=== PATIENT | female | born 1970 | race Caucasian/White ===

== ENCOUNTER 2019-10-19 04:40 | Outpatient (CLI) | payer SELFPAY ==
[2019-10-19 09:00] LABS: CHOL/HDL RATIO 4.28 (0.00-4.99)
[2019-10-19 09:03] LABS: HEMOGLOBIN A1C 5.5 % (4.5-6.2)
== END 2019-10-19 23:59 | disposition home or self-care (01) ==
LOC: HW HEART 04:40
DX: Z13.6 Encounter for screening for cardiovascular disorders (principal)
CPT/HCPCS: 36415; G0438

== ENCOUNTER → 2020-09-16 | Outpatient (CLI) | payer BC | END | disposition home or self-care (01) | LOC: RAD 08:33 | PROVIDERS: ATTEND Physician Assistant Surgical | DX: K80.20 Calculus of gallbladder without cholecystitis without obstruction (principal); R93.5 Abnormal findings on diagnostic imaging of other abdominal regions, including retroperitoneum; R10.11 Right upper quadrant pain | CPT/HCPCS: 76700 ==

== ENCOUNTER 2021-01-01 11:54 | Inpatient (IN) | payer BC ==
[~2021-01-01] VITALS: Ht 167.6 cm; Wt 91.2 kg
[2021-01-01 13:13] LABS: ALANINE AMINOTRANSFERASE 105 U/L (12-78); ALBUMIN 3.4 G/DL (3.4-5.0); ALBUMIN/GLOBULIN RATIO 0.8 (1.1-1.5); ALKALINE PHOSPHATASE 206 IU/L (46-116); ANION GAP 12 (8-16); ASPARTATE AMINO TRANSFERASE 77 U/L (10-37); BILIRUBIN,TOTAL 1.2 MG/DL (0.1-1.0); BLOOD UREA NITROGEN 8 MG/DL (7-18); BUN/CREATININE RATIO 12.5 (6.6-38.0); CALCIUM 9.2 MG/DL (8.5-10.1); CHLORIDE 104 MMOL/L (99-107); CREATININE 0.64 MG/DL (0.40-0.90); GLUCOSE 98 MG/DL (70-104); LIPASE < 50 U/L (73-393); POTASSIUM 3.7 MMOL/L (3.5-5.1); SODIUM 141 MMOL/L (135-145); TOTAL CARBON DIOXIDE 24.9 MMOL/L (24-32); TOTAL PROTEIN 7.8 G/DL (6.4-8.2); eGFR > 90 ML/MIN
[2021-01-01 13:16] LABS: BASOPHILS % (AUTO) 0.4 % (0-1); EOSINOPHILS # (AUTO) 0.2 X10'3 (0-0.9); EOSINOPHILS % (AUTO) 1.4 % (0-6); HEMATOCRIT 38.5 % (35.0-45.0); HEMOGLOBIN 13.2 g/dl (12.0-16.0); LYMPHOCYTES % (AUTO) 17.4 % (21-51); MEAN CORPUSCULAR HEMOGLOBIN 29.4 PG (27.0-31.0); MEAN CORPUSCULAR HGB CONC 34.3 g/dL (33.0-36.5); MEAN CORPUSCULAR VOLUME 85.5 FL (78-98); MEAN PLATELET VOLUME 7.5 FL (7.4-10.4); MONOCYTES # (AUTO) 0.9 X10'3 (0-0.9); MONOCYTES % (AUTO) 7.4 % (2-12); NEUTROPHILS # (AUTO) 8.5 X10'3 (1.8-7.7); NEUTROPHILS % (AUTO) 73.4 % (42-75); PLATELET COUNT 196 X10'3 (140-440); RED CELL DISTRIBUTION WIDTH 12.2 % (11.5-14.5); WHITE BLOOD COUNT 11.6 X10'3 (4.5-11.0)
[2021-01-01 14:23] LABS: CLARITY,URINE SLIGHTLY CLOUDY (Clear); COLOR,URINE YELLOW (Yellow); GLUCOSE, URINE NEGATIVE (Neg); KETONES,URINE 15 mg/dl (Neg); LEUKOCYTE ESTERASE ,URINE NEGATIVE (Neg); NITRITES, URINE NEGATIVE (Neg); OCCULT BLOOD,URINE TRACE-INTACT (Neg); PH,URINE 6.5 (4.8-8.0); PROTEIN,URINE NEGATIVE (Neg); UA COLLECTION TYPE VOIDED
[2021-01-01 14:27] LABS: SQUAMOUS EPITHELIAL CELL,UR MODERATE /LPF (FEW)
[2021-01-01 14:28] LABS: BACTERIA,URINE 1+ /HPF (Neg); RBC,URINE 0-2 /HPF (0-2); WBC,URINE 0-4 /HPF (0-4)
[2021-01-01 14:30] LABS: URINE HCG NEGATIVE (NEG)
--- NOTE | 2021-01-01 15:31 | NUR ---
US AT BEDSIDE
[2021-01-01] MEDS ORDERED: ondansetron/PF 4mg/2ml inj IV ONE (16:05)
[2021-01-01] MEDS ORDERED: piperacillin/tazo 3.375gm/50ml 50 ML IV ONE (16:05)
[2021-01-01] MEDS ORDERED: normal saline 1000ML IV soln IVB ONE (16:05)
[2021-01-01] MEDS ORDERED: morphine 2 MG/ML inj. syringe IV PRN ×2 (16:05→16:15)
[2021-01-01] MEDS ORDERED: METO50TA16 PO (16:08)
[2021-01-01] MEDS ORDERED: HYDR12.55 PO (16:08)
[2021-01-01] MEDS: levoFLOXACIN-Levaquin 750MG/D5 150 ML IV SCH (16:15)
[2021-01-01] MEDS ORDERED: ondansetron/PF 4mg/2ml inj IV PRN (16:15)
[2021-01-01] MEDS: normal saline 1000ml 1,000 ML IV SCH (16:15)
[2021-01-01] MEDS ORDERED: diphenhydrAMINE 25mg capsule PO PRN (16:15)
[2021-01-01] MEDS ORDERED: acetaminophen 325mg tablet PO PRN (16:15)
[2021-01-01] MEDS ORDERED: acetaminophen 650mg rectal suppository RC PRN (16:15)
[2021-01-01] MEDS ORDERED: magnesium 4gm in 100ml NS 100 ML IV PRN (16:15)
[2021-01-01] MEDS ORDERED: potassium Cl 40MEQ/1/2NS 520ml 520 ML IV PRN ×2 (16:15)
[2021-01-01] MEDS ORDERED: HYDROcodone/acetaminophen 5mg/325mg tablet PO PRN (16:15)
[2021-01-01] MEDS ORDERED: bisacodyl 10mg suppository rectal RC PRN (16:15)
[2021-01-01] MEDS ORDERED: magnesium Cl slow-release 64mg tablet PO PRN (16:15)
[2021-01-01] MEDS ORDERED: potassium Cl 20 mEq SR tablet PO PRN ×2 (16:15)
[2021-01-01] MEDS ORDERED: magnesium hydroxide 30ml (MOM) UD suspension PO PRN (16:15)
[2021-01-01] MEDS ORDERED: magnesium 2GM in 50ml NS 50 ML IV PRN (16:15)
[2021-01-01] MEDS ORDERED: mag hydrox/Alum hydrox/simeth 30ml oral suspension PO PRN (16:15)
[2021-01-01] MEDS: morphine 2 MG/ML inj. syringe IV PRN (18:21)
[2021-01-01] MEDS: K and/or MAG REPLACEMENT MC SCH (19:07)
[2021-01-01] MEDS: docusate sod 100mg capsule PO SCH (19:47)
[2021-01-01] MEDS: heparin, porcine 5000 units/ml vial SQ SCH (20:34)
--- NOTE | 2021-01-01 22:05 | NUR ---
Received report from Yovany YUN in the ER. Pt arrived on the floor via gurney and was able to ambulate to her bed. Her personal belongings were placed at bedside. Pt was on room air, had NS running at 100 mls/hr and no signs of distress. Will continue to monitor.
[2021-01-01 23:01] VITALS: BP 165/85
[2021-01-01] MEDS: metroNIDAZOLE-Flagyl 500mg/NS 100 ML IV SCH (23:18)
[2021-01-01] MEDS: acetaminophen 325mg tablet PO PRN (23:26)
[2021-01-01] MEDS: metoprolol tartrate 50mg tablet PO SCH (23:29)
[2021-01-02] VITALS (18 sets, daily range): BP systolic 131–166; BP diastolic 75–89
[2021-01-02] MEDS: normal saline 1000ml 1,000 ML IV SCH ×3 (03:38→21:20)
[2021-01-02] MEDS: morphine 2 MG/ML inj. syringe IV PRN (03:41)
--- NOTE | 2021-01-02 06:29 | NUR ---
Problems reprioritized. Patient report given, questions answered & plan of care reviewed with Valentina YUN.
[2021-01-02] MEDS: heparin, porcine 5000 units/ml vial SQ SCH ×2 (07:28→22:56)
[2021-01-02] MEDS: docusate sod 100mg capsule PO SCH ×2 (07:29→22:56)
[2021-01-02] MEDS: metoprolol tartrate 50mg tablet PO SCH ×3 (07:29→22:55)
[2021-01-02] MEDS: K and/or MAG REPLACEMENT MC SCH ×2 (08:00→20:00)
[2021-01-02] MEDS: metroNIDAZOLE-Flagyl 500mg/NS 100 ML IV SCH ×2 (09:25→16:22)
[2021-01-02] MEDS: HYDROcodone/acetaminophen 10/325mg tab PO PRN ×2 (09:31→22:56)
[2021-01-02] MEDS ORDERED: pantoprazole 40 MG vial IV ONE (09:35)
[2021-01-02 10:17] LABS: BASOPHILS % (AUTO) 0.3 % (0-1); EOSINOPHILS # (AUTO) 0.2 X10'3 (0-0.9); EOSINOPHILS % (AUTO) 1.9 % (0-6); HEMATOCRIT 36.2 % (35.0-45.0); HEMOGLOBIN 12.8 g/dl (12.0-16.0); LYMPHOCYTES # (AUTO) 1.6 X10'3 (1.1-4.8); MEAN CORPUSCULAR HEMOGLOBIN 29.6 PG (27.0-31.0); MEAN CORPUSCULAR HGB CONC 35.2 g/dL (33.0-36.5); MEAN CORPUSCULAR VOLUME 84.2 FL (78-98); MEAN PLATELET VOLUME 6.8 FL (7.4-10.4); MONOCYTES # (AUTO) 0.5 X10'3 (0-0.9); NEUTROPHILS # (AUTO) 6.1 X10'3 (1.8-7.7); NEUTROPHILS % (AUTO) 72.8 % (42-75); PLATELET COUNT 216 X10'3 (140-440); RED CELL DISTRIBUTION WIDTH 12.6 % (11.5-14.5); WHITE BLOOD COUNT 8.3 X10'3 (4.5-11.0)
[2021-01-02 10:33] LABS: ALANINE AMINOTRANSFERASE 84 U/L (12-78); ALBUMIN 2.9 G/DL (3.4-5.0); ALBUMIN/GLOBULIN RATIO 0.7 (1.1-1.5); ALKALINE PHOSPHATASE 211 IU/L (46-116); ANION GAP 9 (8-16); ASPARTATE AMINO TRANSFERASE 41 U/L (10-37); BLOOD UREA NITROGEN 7 MG/DL (7-18); BUN/CREATININE RATIO 10.1 (6.6-38.0); CALCIUM 8.3 MG/DL (8.5-10.1); CHLORIDE 106 MMOL/L (99-107); CHOL/HDL RATIO 6.1 (0.00-4.99); CHOLESTEROL 183 MG/DL (0-200); CREATININE 0.69 MG/DL (0.40-0.90); GLUCOSE 99 MG/DL (70-104); HDL CHOLESTEROL 30 MG/DL (35-60); LDL CHOLESTEROL 124 MG/DL (50-100); MAGNESIUM 1.9 MG/DL (1.5-2.4); PHOSPHORUS 3.5 MG/DL (2.3-4.5); SODIUM 141 MMOL/L (135-145); TOTAL CARBON DIOXIDE 26.4 MMOL/L (24-32); TRIGLYCERIDES 139 MG/DL (20-135); eGFR 89 ML/MIN
[2021-01-02 10:35] LABS: POTASSIUM 3.8 MMOL/L (3.5-5.1)
[2021-01-02] MEDS: levoFLOXACIN-Levaquin 750MG/D5 150 ML IV SCH (12:04)
[2021-01-02] MEDS ORDERED: labetalol 20mg/4ml (5mg/ml) syringe IV PRN ×2 (13:25→19:40)
[2021-01-02] MEDS ORDERED: hydrALAZINE 20mg/ml inj. IV PRN ×2 (13:25→19:45)
[2021-01-02] MEDS ORDERED: fentaNYL/PF 50MCG/1 ML 2ML syringe IV PRN ×4 (13:25→19:35)
[2021-01-02] MEDS ORDERED: morphine 4 MG/ML inj SYRINge IV PRN ×2 (13:25→19:35)
[2021-01-02] MEDS ORDERED: morphine 2 MG/ML inj. syringe IV PRN (13:25)
[2021-01-02] MEDS ORDERED: ondansetron/PF 4mg/2ml inj IV PRN ×2 (13:25→19:40)
[2021-01-02] MEDS ORDERED: ringers solution, lacted 1,000 ML IV SCH (13:25)
[2021-01-02] MEDS ORDERED: INDOCYANINE GREEN 25 MG/10 ML VIAL IV ONE (16:35)
[2021-01-02] MEDS ORDERED: LIDOcaine 1% 30ml preserv. free vial ONE (16:49)
[2021-01-02] MEDS ORDERED: BUPIVAcaine 0.5% inj/PF 30 ML ONE (16:49)
--- NOTE | 2021-01-02 17:00 | NUR ---
Report called to Aldair in Recovery room.
[2021-01-02] MEDS ORDERED: fentaNYL/PF 50MCG/1 ML 2ML syringe ONE ×2 (17:21→17:58)
[2021-01-02] MEDS ORDERED: midazolam 1 mg/ML 2ml injection ONE (17:22)
[2021-01-02] MEDS ORDERED: LIDOcaine 2% (20mg/ml) 5ml vial ONE ×2 (17:22→17:32)
[2021-01-02] MEDS ORDERED: propofol inj 20 ML IV ONE ×2 (17:22→17:32)
[2021-01-02] MEDS ORDERED: ondansetron/PF 4mg/2ml inj ONE (17:23)
[2021-01-02] MEDS ORDERED: rocuronium 10mg/ml inj IV ONE ×2 (17:23→17:32)
[2021-01-02] MEDS ORDERED: dexamethasone sod phosphate 4mg/ml inj. ONE (17:33)
[2021-01-02] MEDS ORDERED: labetalol 20mg/4ml (5mg/ml) syringe IV ONE (17:48)
--- NOTE | 2021-01-02 18:20 | NUR ---
Patient in room [facility]. I have received report from COURT Montgomery and had the opportunity to ask questions and assume patient care.
--- NOTE | 2021-01-02 18:23 | NUR ---
Problems reprioritized. Patient report given, questions answered & plan of care reviewed with COURT Timmons.
--- NOTE | 2021-01-02 18:49 | NUR ---
Received from OR via SURGICAL BED , accompanied by Anesthesiologist CLARA and report given by Anesthesiolgist. PATIENT WITH 3 ABDOMINAL BANDAIDS PRESENT THAT ARE CDI AT THIS TIME. NO DRAINAGE PRESENT. VSS AND DENIES PAIN A TTHIS TIME. PATIENT WITH 10L MASK ON WITH 100% SATURATIONS. 20G PIV IN LEFT UE RUNNING LR AT 100. Addendum: 01/02/21 at 1900 by Aldair Zapien RN, RN Amended: Links added.
[2021-01-02] MEDS ORDERED: HYDROcodone/acetaminophen 5mg/325mg tablet PO PRN (18:50)
[2021-01-02] MEDS ORDERED: HYDROcodone/acetaminophen 10/325mg tab PO PRN (18:50)
--- NOTE | 2021-01-02 19:28 | NUR ---
Patient in room [facility]. I have received report from COURT Qu[place]os and had the opportunity to ask questions and assume patient care.
--- NOTE | 2021-01-02 19:59 | NUR ---
TRANSFER: PATIENT HAS MET ALL CRITERIA FOR TRANSFER TO THE SURGICAL/[facility]/PCU/ORTHO/ICU FLOOR. VSS. DRESSINGS INTACT. BED LOW, CALL LIGHT PRESENT AND 2 RAILS UP. RN PRESENT TO ACCEPT CARE OF PATIENT AND REPORT HAS BEEN CALLED. ALL QUESTIONS ANSWERED TO ACCEPTING COURT MORALES . Addendum: 01/02/21 at 2010 by Aldair Munoz - COURT RN Amended: Links added.
--- NOTE | 2021-01-02 20:00 | NUR ---
Patient arrived to floor, had just received 50 of fentanyl prior to transfer from recovery for a 9/10 pain. Pt now states pain a 6, is sleepy, abdomen soft with 3 band aids on abdomen, CDI. VSS.
[2021-01-02] MEDS: lactobacillus rhamnosus 10,000 MMU CELLS/CAPSULE PO SCH (22:55)
[2021-01-03] VITALS: BP 161/76
[2021-01-03] MEDS: metroNIDAZOLE-Flagyl 500mg/NS 100 ML IV SCH ×2 (00:54→08:05)
--- NOTE | 2021-01-03 06:20 | NUR ---
Problems reprioritized. Patient report given, questions answered & plan of care reviewed with COURT Montgomery.
[2021-01-03 06:27] LABS: ALANINE AMINOTRANSFERASE 68 U/L (12-78); ALBUMIN 2.6 G/DL (3.4-5.0); ALBUMIN/GLOBULIN RATIO 0.6 (1.1-1.5); ALKALINE PHOSPHATASE 201 IU/L (46-116); ANION GAP 11 (8-16); ASPARTATE AMINO TRANSFERASE 44 U/L (10-37); BILIRUBIN,TOTAL 0.7 MG/DL (0.1-1.0); BLOOD UREA NITROGEN 8 MG/DL (7-18); BUN/CREATININE RATIO 11.6 (6.6-38.0); CALCIUM 8.2 MG/DL (8.5-10.1); CHLORIDE 106 MMOL/L (99-107); CREATININE 0.69 MG/DL (0.40-0.90); GLUCOSE 163 MG/DL (70-104); MAGNESIUM 1.7 MG/DL (1.5-2.4); PHOSPHORUS 3.1 MG/DL (2.3-4.5); POTASSIUM 4.1 MMOL/L (3.5-5.1); SODIUM 142 MMOL/L (135-145); TOTAL PROTEIN 6.9 G/DL (6.4-8.2); eGFR 89 ML/MIN
--- NOTE | 2021-01-03 06:39 | NUR ---
Patient in room [facility]. I have received report from Shanelle YUN and had the opportunity to ask questions and assume patient care.
[2021-01-03 06:58] LABS: BASOPHILS % (AUTO) 0.1 % (0-1); HEMATOCRIT 35.6 % (35.0-45.0); HEMOGLOBIN 12.3 g/dl (12.0-16.0); LYMPHOCYTES # (AUTO) 0.6 X10'3 (1.1-4.8); LYMPHOCYTES % (AUTO) 6.7 % (21-51); MEAN CORPUSCULAR HEMOGLOBIN 29.4 PG (27.0-31.0); MEAN CORPUSCULAR HGB CONC 34.6 g/dL (33.0-36.5); MEAN CORPUSCULAR VOLUME 84.9 FL (78-98); MEAN PLATELET VOLUME 7.2 FL (7.4-10.4); MONOCYTES # (AUTO) 0.3 X10'3 (0-0.9); MONOCYTES % (AUTO) 3.4 % (2-12); NEUTROPHILS # (AUTO) 8.1 X10'3 (1.8-7.7); NEUTROPHILS % (AUTO) 89.8 % (42-75); RED BLOOD COUNT 4.19 X10'6 (4.20-5.60)
[2021-01-03 07:00] VITALS: BP 157/77
[2021-01-03] MEDS ORDERED: pantoprazole 40 MG vial IV SCH (08:00)
[2021-01-03] MEDS ORDERED: HYDROchlorothiazide 12.5mg capsule PO SCH (08:00)
[2021-01-03] MEDS: K and/or MAG REPLACEMENT MC SCH (08:00)
[2021-01-03] MEDS: heparin, porcine 5000 units/ml vial SQ SCH (08:05)
[2021-01-03] MEDS: metoprolol tartrate 50mg tablet PO SCH (08:06)
[2021-01-03] MEDS: lactobacillus rhamnosus 10,000 MMU CELLS/CAPSULE PO SCH (08:06)
[2021-01-03] MEDS: docusate sod 100mg capsule PO SCH (08:06)
[2021-01-03] MEDS: normal saline 1000ml 1,000 ML IV SCH (08:07)
[2021-01-03] MEDS: acetaminophen 325mg tablet PO PRN (09:12)
[2021-01-03] MEDS: levoFLOXACIN-Levaquin 750MG/D5 150 ML IV SCH (09:13)
[2021-01-03 11:00] VITALS: BP 151/95
[2021-01-03] MEDS ORDERED: AMOX-117 PO (13:00)
--- NOTE | 2021-01-03 14:00 | NUR ---
Patient stable and appropriate for discharge home with her mother. IV removed, all belongings taken from room. New prescription e-scripted to preferred pharmacy. All discharge instructions and education given and reviewed with patient, all questions answered.
--- NOTE | 2021-01-03 14:06 | NUR ---
Student documentation: I have reviewed and agree with all interventions, assessments performed and documented by SN Joo. Student Medication Administration: For this medication-pass time frame, all medication were reviewed, dispensed, administered and documented per hospital policy by SN Joo.
== END 2021-01-03 14:23 | disposition home or self-care (01) | DRG 419 ==
LOC: ER 11:54 → ED HOLD 16:21 → SUR 3N 21:30
PROVIDERS: ADMIT Family Medicine; ATTEND Family Medicine
PROC: 8E0W4CZ Robotic Assisted Procedure of Trunk Region, Percutaneous Endoscopic Approach (ICD-10-PCS; 2021-01-02)
PROC: BF532Z0 Other Imaging of Gallbladder and Bile Ducts using Fluorescing Agent, Intraoperative (ICD-10-PCS; 2021-01-02)
PROC: 0FT44ZZ Resection of Gallbladder, Percutaneous Endoscopic Approach (ICD-10-PCS; principal; 2021-01-02 17:20)
DX: K80.62 Calculus of gallbladder and bile duct with acute cholecystitis without obstruction (principal); I10 Essential (primary) hypertension; K82.A1 Gangrene of gallbladder in cholecystitis; Z20.822 Contact with and (suspected) exposure to COVID-19; Z79.899 Other long term (current) drug therapy; Z82.49 Family history of ischemic heart disease and other diseases of the circulatory system; Z90.710 Acquired absence of both cervix and uterus; Z88.2 Allergy status to sulfonamides; Z88.8 Allergy status to other drugs, medicaments and biological substances; Z98.891 History of uterine scar from previous surgery
CPT/HCPCS: 99285; Z7506; Z7508; 36415; 74181; 76700; 80053; 80061; 81001; 81025; 82948; 83036; 83605; 83690; 83735; 84100; 85025; 87040; 87081; 87635; A4215; A4618; A7000; C9113; G0378; J1100; J1644; J1956; J2001; J2250; J2270; J2405; J2543; J2704; J3010; J3490; J7030; J7120